=== PATIENT | male | born 1985 ===

== ENCOUNTER 2017-02-25 08:33 | Day surgery (SDC) | payer OTHER ==
[2017-02-03 11:24] VITALS: BMI 39.1
[2017-02-25] MEDS ORDERED: Dexamethasone 4 mg/1 ml ONE (10:05)
[2017-02-25] MEDS ORDERED: Bacitracin Ointment 30 GM TUBE ONE (10:06)
[2017-02-25] MEDS ORDERED: Triamcinolone Acetonide 40 mg/mL Inj ONE (10:06)
[2017-02-25] MEDS ORDERED: Propofol 10 mg/ml 1,000 MG/100 ML VIAL ONE (10:11)
[2017-02-25] MEDS: Lidocaine 2% Inj (20ml) ONE ×2 (10:15→10:25)
[2017-02-25] MEDS: Bupivacaine 0.5% Inj(30mL) ONE ×2 (10:15→10:25)
[2017-02-25] MEDS ORDERED: Lactated Ringer's 1,000 ML IV ONE ×2 (10:16)
[2017-02-25] MEDS: ceFAZolin IV 2 gm in Dextrose 1 GM/50 ML BAG IVPB ONE ×2 (10:16→10:30)
[2017-02-25] MEDS ORDERED: Midazolam 2 MG/2 ML VIAL ONE (10:20)
[2017-02-25] MEDS ORDERED: HYDROmorphone 0.5 mg/0.5 ml ISec IVP PRN (10:35)
[2017-02-25] MEDS ORDERED: Propofol 10 mg/ml Inj (20 ML) ONE (11:51)
[2017-02-25] MEDS ORDERED: Oxycodone/Acetaminophen 5/325 mg Tab PO PRN ×2 (12:01)
--- NOTE | 2017-02-25 12:09 | PCM.SURG1 ---
Surgeon's Initial Post Op Note - Surgeon's Notes Surgeon: Dr. Tolbert Hot Wort Settler: Dr. Mesa, DPM PGY-2; SHER ParkerM PGY-1 Type of Anesthesia: MAC, Local Anesthesia Administered By: Dr. 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
[2017-02-25] MEDS ORDERED: Lactated Ringer's 500 ML IV SCH (12:15)
--- NOTE | 2017-02-25 13:07 | RAD ---
PROCEDURE: Right Foot Radiographs. HISTORY: s/p right foot surgery COMPARISON: No prior studies available for comparison. FINDINGS: BONES: Postoperative osteotomy changes involving the distal aspect of the 1st metatarsal and proximal phalanx with in situ fixation screws. . Surrounding postoperative changes include subcutaneous infiltration edema - soft tissue swelling and small amount of subcutaneous air. JOINTS: Slight lateral subluxation of the 2nd 3rd and 4th proximal phalanges. SOFT TISSUES: As above. OTHER FINDINGS: None. IMPRESSION: Postoperative changes 1st metatarsal and proximal phalanx with expected surrounding postoperative soft tissue changes as above.
[2017-02-25 13:47] VITALS: RESP 16
[2017-02-25 16:04] VITALS: BP 111/54; PULSE 70; TEMP 98.2; O2SAT 97
--- NOTE | 2017-02-26 08:55 | OP ---
PROCEDURE DATE: 02/25/17 PREOPERATIVE DIAGNOSES: Right foot painful hallux abductovalgus deformity and painful hallux interphalangeal deformity. POSTOPERATIVE DIAGNOSES: Right foot painful hallux abductovalgus deformity and painful hallux interphalangeal deformity. NAME OF PROCEDURE: 1.Right foot Raza bunionectomy with screw fixation 2. Jarred osteotomy of proximal phalanx with screw fixation. SURGEON: Bulmaro Tolbert DPM ASSISTANTS: 1. Louise Mesa DPM, PGY2 2. Mani Ross DPM, PGY1 TYPE OF ANESTHESIA: MAC IV sedation with local injection. ANESTHESIA ADMINISTERED BY: Dr. Christian. INDICATION: The patient is a 31-year-old male with the above mentioned diagnoses. The patient has exhausted all conservative treatment measures at this time and now require surgical intervention. The patient has signed the consent after careful explanation of all risks, benefits, complications, and alternatives for the surgical procedure. No guarantees were given nor implied. 2 g of Ancef IV was given to the patient prior to the procedure. N.p.o status was confirmed prior to bringing the patient to the operating room. PREPARATION: The patient was brought into the operating room and placed in the operating table in supine position. A well-padded pneumatic ankle tourniquet was placed on the patient's right ankle in a supramalleolar position. After induction of IV sedation, the patient received a total of 20 mL of 1:1 mixture of 0.5% Marcaine plain and 2% lidocaine plain in local block fashion to the right foot. Once local anesthesia was achieved, the right foot was then prepped and draped in the usual sterile manner. Esmarch was utilized to exsanguinate the patient's right foot. Pneumatic ankle tourniquet was inflated to 250 mmHg and the procedure began. DESCRIPTION OF PROCEDURE: Procedure #1: Raza bunionectomy of first metatarsal right foot with screw fixation. Attention was then directed to the dorsal aspect of the first metatarsal head of the right foot where an approximately 6 cm linear longitudinal incision was made in the medial and parallel to the tendon of extensor hallucis longus and involve the contour of the deformity. The incision was deepened to the subcutaneous tissue using sharp and blunt dissection. Care was taken to identify and retract all other neurovascular structures. All bleeders were cauterized and ligated as necessary. Attention was then directed to the first entry space near the original incision, where the tendon of the extensor hallucis brevis was identified and tenectomized. Dissection was continued deep using blunt dissection down to the level of the fibular sesamoid, which was freed of soft tissue attachment to proximal, lateral, and distally. The conjoint tendon of the adductor hallucis muscle was then identified and transected attaching to the base of proximal phalanx of hallux. At this time, the lateral contracture of the hallux was noted to be reduced and the sesamoid apparatus was noted to float in a more corrected medial position. At this time, an inverted L-type capsulotomy was performed at the dorsal aspect of the first metatarsophalangeal joint. The periosteal and capsular structures were carefully dissected free of its attachment reflected medial and laterally both exposing the head of the first metatarsal on the operative site. Next, utilizing oscillating bone saw the dorsal and medial prominences were then resected and passed the operative field. All roughened edges were then smooth down to bone graft. At this time, the hip was then externally rotated and knee was flexed to bring the medial surface of the foot superior to allow for better visualization of the medial aspect of the first metatarsal head for the osteotomy cut. Attention was then redirected to the medial aspect of the first metatarsal head where a [id number] V-type osteotomy was created at the metaphyseal region of the bone utilizing oscillating bone saw. A distal aspect of the osteotomy pointed distally and the arms pointing proximal plantarly and proximal dorsally. The dorsal arm was made longer to accommodate internal fixation. Upon completion of the osteotomy, the top of fibula was distracted and shifted laterally into a more corrected position and impacted upon the first metatarsal shaft. At this time, one 0.045 inch K-wire was driven from dorsal to plantar across the osteotomy site to serve as a temporary fixation. Next, using standard AO technique, a 2.7 x 14 mm Synthes cortical screw was then inserted and placed across the osteotomy site with excellent compression noted. A K-wire was then removed from the bone and passed off the operative field. Attention was then directed to remaining medial bone shaft, which was then resected utilizing oscillating bone saw and passed off the operative site. Correction of the deformity was assessed at this time and was noted to be excellent. The wound was then flushed with copious amounts of sterile normal saline solution. The periosteal and capsular structures were then reapproximated and coapted using #2-0 and 3-0 Vicryl. Redundant capsular tissues were then resected as necessary. The subcuticular tissues were then reapproxiamted and coapted using #4-0 Vicryl suture. The skin was then reapproximated and coapted utilizing #4-0 Prolene in a horizontal matters intraoperative technique. Procedure #2: Jarred osteotomy of first proximal phalanx right foot with screw fixation. Via the original incision, the periosteal and capsular structures were reflected medially and laterally exposing the base of proximal phalanx to the operative site. Next, utilizing oscillating bone saw dorsal to plantar proximal osteotomy was created in the proximal phalanx of the right hallux. A wedge of bone was resected and passed off the operative field following standard AO principles and technique. A 2.0 x 14 mm screw was inserted and placed across the osteotomy site with excellent compression noted. The wound was then flushed with copious amount of sterile normal saline. The periosteal and capsular structures were reapproximated and coapted utilizing #3-0 Vicryl. Subcuticular tissues were then reapproximated and coapted utilizing #4-0 Vicryl and the skin was reapproximated and coapted using #4-0 Prolene in a horizontal mattress intraoperative technique. Postoperative bandages included adaptive,4x4 gauze, kerlix and TIFFANIE bandage. POSTOPERATIVE CONDITION: The patient tolerated the anesthesia and procedures well and was escorted to recovery room with vital signs stable and neurovascular structures intact to the right foot. The patient will be partial weightbearing to the right heel with crutches and surgical shoe. The patient will follow up with Dr. Tolbert as an outpatient within 1 week. Louise Mesa DPM Bulmaro Tolbert DPM [facility] # [id number] [place]
== END 2017-02-25 14:18 | disposition home or self-care (01) ==
LOC: C.SDS 08:33
PROVIDERS: ATTEND Podiatrist Foot & Ankle Surgery
DX: M20.11 Hallux valgus (acquired), right foot (principal)
CPT/HCPCS: 28296; 73620; 88305; 97116; 97161; C1713; G8978; G8979; G8980; J0690; J1100; J2250; J2704; J3010; J7120